=== PATIENT | male | born 1980 | race Caucasian/White ===

== ENCOUNTER 2021-04-19 12:09 | Emergency (ER) | payer OTHER, SELFPAY ==
[2021-04-19 12:21] VITALS: BP 149/91; PULSE 98; RESP 16; TEMP 36.7; O2SAT 98
--- NOTE | 2021-04-19 12:29 | ED.UPPEXIN ---
HPI - Extremity Injury (Upper) General Chief Complaint: Extremity Injury, Upper Stated Complaint: Right Arm Pain Time Seen by Provider: 04/19/21 12:29 Source: patient and RN notes reviewed Mode of arrival: ambulatory Limitations: no limitations History of Present Illness HPI narrative: 40-year-old male presents to the ED express care with right proximal forearm pain and pulling sensation for the last 2 weeks. 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 No direct trauma. Has full range of motion of the shoulder, elbow, wrist. Strong table games manager noted. Positive radial pulse. Sensation intact in all 5 fingers. Fingertip taps normal MD complaint: injury to: right (forearm) and forearm Related Data Allergies Allergy/AdvReac Type Severity Reaction Status Date / Time No Known Allergies Allergy Verified 06/03/14 15:57 Review of Systems Review of Systems: All systems reviewed & are unremarkable except as noted in HPI and below Constitutional: Constitutional: Reports no additional constitutional complaints, Denies chills and Denies fever(s) Eyes: Eyes: Reports no additional eye complaints ENT: Reports system reviewed and no additional complaints, except as documented, Denies vertigo, Denies dizziness and Denies headache(s) Cardiovascular: Cardiovascular: Reports no additional cardiovascular complaints, Denies chest pain, Denies syncope and Denies dyspnea Respiratory: Respiratory: Reports no additional respiratory complaints, Denies cough and Denies dyspnea Gastrointestinal: Gastrointestinal: Reports no additional gastrointestinal complaints, Denies abdominal pain, Denies nausea and Denies vomiting Musculoskeletal: Musculoskeletal: Reports as per HPI, Denies joint swelling, Reports muscle cramps (right forearm ) and Denies numbness Integumentary/Breasts: Skin/Breast: Reports system reviewed and no additional complaints, except as docu, Denies erythema and Denies rash Neurologic: Reports system reviewed and no additional complaints, except as documented, Denies confusion, Denies vertigo, Denies dizziness, Denies syncope, Denies headache(s), Denies focal weakness, Denies numbness and Denies weakness Psychiatric: Psychiatric: Reports no additional psychiatric complaints and Denies confusion Allergic/Immunologic: Allergic/Immunologic: Reports no additional allergic/immunologic complaints PMFSH Past Medical History Medical History (Updated 04/19/21 @ 19:43 by Tracee Morel) No significant medical problems Surgical History Surgical History (Updated 04/19/21 @ 19:43 by Tracee Morel) No pertinent past surgical history Social History Social History (Updated 04/19/21 @ 19:43 by Tracee Morel) Gender identity (if verbalized by the patient): Male Comments At the time of my signature, I reviewed and agree with the nursing past medical, surgical, social, and family history. There is no relevant family history pertinent to the patient complaint. Exam Const: General: healthy appearing and no acute distress; No confusion Nutritional Appearance: well nourished Orientation/consciousness: patient oriented x3 Limitations: no limitations HENMT: Head: normal to inspection Ears: external ears normal Eyes: Conjunctivae: conjunctivae normal Pupils: Equal, round and reactive pupils present Neck: Neck: normal visual inspection, no lymphadenopathy and no meningeal signs Chest: Chest palpation & inspection: normal inspection of the chest Resp: Effort & Inspection: normal respiratory effort and no use of accessory muscles Auscultation: clear to auscultation bilaterally, no crackles, no rales, no rhonchi and no wheezes Cardio: Rate: regular rate Rhythm: regular rhythm Back/Spine/Pelvis: Back: no CVA tenderness Cervical Spine: normal cervical lordosis Thoracic/Lumbar Spine: thoracic and lumbar spine normal to inspection Skin: General skin exam: normal color Rashes: no rashes Wounds: no wounds Neuro: Ge
== END 2021-04-19 12:35 | disposition home or self-care (01) ==
PROVIDERS: Emergency Provider Nurse Practitioner
DX: S56.911A Strain of unspecified muscles, fascia and tendons at forearm level, right arm, initial encounter (principal); X50.3XXA Overexertion from repetitive movements, initial encounter; Y99.0 Civilian activity done for income or pay
CPT/HCPCS: 99213; G0463

== ENCOUNTER 2022-10-12 20:59 | Emergency (ER) | payer OTHER, SELFPAY ==
--- NOTE | ~2022-10-12 | CT_ITS ---
CT of the Abdomen and Pelvis: Indication: Abdominal pain Technique: 2.5 mm axial scans were obtained through the abdomen and pelvis following intravenous adm inistration of 100 cc of Omnipaque 350. Dose reduction technique was used on this scan by utilizing a utomated exposure control and iterative reconstruction technique. The dose-length product (DLP) was 4 09.53 mGy-cm. Findings: Scans through the lung bases are unremarkable. The liver, spleen, pancreas, gallbladder, and adrenal glands are within normal limits. There is a 5 m m stone at the mid right ureter (axial image 133), with mild right hydroureteronephrosis to this leve l. There is an additional 4 mm stone in the mid right ureter is slightly more proximally (axial image 124), with the ureter dilated to 10 mm at this level. There are additional bilateral nonobstructing renal stones. No left ureteral stone or left hydronephrosis. Evidence of aortic aneurysm. No lymphad enopathy. No bowel obstruction or bowel wall thickening. There is no evidence to suggest acute appendicitis. Images through the pelvis were performed. Urinary bladder unremarkable. Prostate gland is vesicles ar e unremarkable. No ascites. Impression: 5 mm obstructing stone in the mid right ureter with mild right hydroureteronephrosis to this level. Additional 4 mm mid right ureteral stone, somewhat more proximally, with the ureter dilated to 10 mm at this level. Additional nonobstructing bilateral renal stones. Reviewed, dictated and finalized at [facility]. Impression: 5 mm obstructing stone in the mid right ureter with mild right hydroureteroneph rosis to this level. Additional 4 mm mid right ureteral stone, somewhat more proximally, with the ur eter dilated to 10 mm at this level. Additional nonobstructing bilateral renal stones.
[2022-10-12 21:01] VITALS: BP 122/87; PULSE 77; RESP 16; TEMP 36.4; O2SAT 100
--- NOTE | 2022-10-12 21:28 | ED.ABDPAIN ---
HPI - Abdominal Pain General Chief Complaint: Abdominal Pain Stated Complaint: RLQ pain Time Seen by Provider: 10/12/22 21:08 History of Present Illness HPI narrative: 41-year-old male reports for evaluation for right-sided flank pain and right-sided abdominal pain since he woke up this afternoon. He reports associated nausea and multiple episodes of vomiting along with chills and diaphoresis. States it feels like he is dying . Reports the pain radiates from his right flank into the right lower quadrant and into the right testicle. He denies dysuria or hematuria, diarrhea, chest pain or shortness of breath, known fever, injury. Denies penile discharge, testicular pain or swelling. Related Data Allergies Allergy/AdvReac Type Severity Reaction Status Date / Time No Known Allergies Allergy Verified 06/03/14 15:57 Review of Systems Review of Systems: CONSTITUTIONAL: Denies fever, chills EYES: Denies visual changes, redness, or discharge. ENT: Denies rhinorrhea, congestion, sore throat, or otalgia. CARDIOVASCULAR: Denies chest pain, palpitations, or edema. RESPIRATORY: Denies cough or dyspnea. GASTROINTESTINAL: See HPI GENITOURINARY: Denies dysuria or hematuria. SKIN: Denies rash or itching. MUSCULOSKELETAL: See HPI NEUROLOGIC: Denies headache, numbness, dizziness, or weakness. PSYCHIATRIC: Denies anxiety or depression. [facility] Past Medical History Medical History No significant medical problems Surgical History Surgical History No pertinent past surgical history Social History Social History Gender identity (if verbalized by the patient): Male Exam Narrative: GENERAL: Patient appears uncomfortable, writhing in the bed due to pain HEAD: Normocephalic EYES: PERRLA ENT: Nares clear. Mucous membranes moist. Oropharynx without tonsillar hypertrophy exudate or other lesions. NECK: Supple. CHEST: No respiratory distress. Clear to auscultation, no adventitious breath sounds. HEART: Regular rate and rhythm. No murmur heard. Normal peripheral pulses. ABDOMEN: Normal active bowel sounds. Abdomen soft with tenderness in the right upper and lower quadrants. No guarding, rebound or rigidity. Right CVA tenderness. No overlying skin changes. : Low-lying testicles without tenderness to spermatic cord, testes or epididymis. No crepitus. No penile discharge or lesions. EXTREMITIES: Normal range of motion. No edema. SKIN: Warm, dry, no rash. NEURO: No focal deficits. Alert and oriented x3. PSYCH: Normal mood and affect. Course Vital Signs Vital signs: Vital Signs Temperature 97.6 F 10/12/22 21:01 Pulse Rate 77 10/12/22 21:01 Respiratory Rate 16 10/12/22 21:01 Blood Pressure 122/87 10/12/22 21:01 Pulse Oximetry 100 10/12/22 21:01 Oxygen Delivery Room Air 10/12/22 21:01 Temperature 97.6 F 10/12/22 21:01 Pulse Rate 62 10/12/22 23:23 Respiratory Rate 15 10/12/22 23:23 Blood Pressure 122/76 10/12/22 23:23 Pulse Oximetry 100 10/12/22 23:23 Oxygen Delivery Room Air 10/12/22 21:01 MDM - Abdominal Pain MDM Narrative Medical decision making narrative: 41-year-old male reports for evaluation for right-sided flank pain and right-sided abdominal pain that radiates to the right testy since he woke up this afternoon. Vital stable, he is afebrile. Exam significant for right-sided abdominal tenderness and right CVA tenderness. Testicular exam unremarkable. Labs significant for no leukocytosis. Glucose elevated to 129 which is likely reactive. AST and ALT are elevated, no prior comparison. CT abdomen pelvis significant for an obstructing 5 mm stone in the right mid ureter with mild hydronephrosis of the right kidney as well as a partially obstructing 4 mm stone in the right mid ureter. UA shows hematu
[2022-10-12] MEDS: SODIUM CHLORIDE 0.9% IV 1,000 ML 999 ML IV CONT ×2 (21:40→23:53)
[2022-10-12] MEDS: ONDANSETRON INJ 4 MG/2 ML VIAL IV PUSH ×2 (21:40→23:52)
[2022-10-12] MEDS: MORPHINE SULFATE (*CRX) 4 MG/ML INJ IV PUSH (21:40)
[2022-10-12 21:49] LABS: Basophils Percent Auto 0.3 % (0.2-1.2); Eosinophils Absolute Auto 0.1 K/mm3 (0-0.3); Eosinophils Percent Auto 1.4 % (0-4.4); Hematocrit 40.4 % (42.0-52.0); Hemoglobin 13.3 g/dL (14.0-18.0); Immature Granulocyte Absolute 0.03 K/mm3 (0.00-0.031); Immature Granulocyte Percent A 0.3 % (0-0.5); Lymphocytes Absolute Auto 1.89 K/mm3 (0.9-3.2); Lymphocytes Percent Auto 19.9 % (18.3-44.2); Mean Corpuscular HGB Conc 32.9 g/dl (32-36); Mean Corpuscular Volume 88.2 fl (80-100); Mean Platelet Volume 9.5 fl (7.4-10.4); Monocytes Absolute Auto 0.6 K/mm3 (0.1-0.6); Monocytes Percent Auto 6.7 % (2.6-8.5); Neutrophils Absolute Auto 6.8 K/mm3 (1.3-6.7); Neutrophils Percent Auto 71.4 % (45.5-73.1); Platelet Count Result 254 k/mm3 (150-375); Red Blood Count 4.58 M/mm3 (4.6-6.20); Red Cell Distribution Width 13.2 % (11.5-14.5); White Blood Count 9.5 K/mm3 (4.5-10.0)
[2022-10-12 21:57] LABS: Alanine Aminotransferase 163 U/L (6-50); Albumin Level 4.1 g/dL (3.5-5.1); Alkaline Phosphatase 64 U/L (38-126); Anion Gap 6 mmol/L (8-16); Aspartate Amino Transferase 72 U/L (17-59); Bilirubin,Total 0.4 mg/dL (0.2-1.3); Blood Urea Nitrogen 14 mg/dL (9-20); Calcium 9.1 mg/dL (8.4-10.2); Carbon Dioxide 26 mmol/L (22-30); Chloride 105 mmol/L (98-107); Estimated CRCL calculation 88 ml/min; Estimated Glomerular Filt Rate > 60; Glucose 129 mg/dL (65-110); Lipase 268 U/L (23-300); Potassium 4.4 mmol/L (3.4-5.0); Sodium 137 mmol/L (137-145)
[2022-10-12] MEDS: HYDROmorphone HCL INJ (*CRX) 1 MG/ML SYR IV PUSH (22:51)
[2022-10-12 23:23] VITALS: BP 122/76; PULSE 62; RESP 15; O2SAT 100
[2022-10-12] MEDS: HYDROmorphone HCL INJ (*CRX) 1 MG/ML SYR 0.5 MG IV PUSH (23:52)
[2022-10-13 01:09] LABS: Appearance Urine Clear (Clear); Bacteria Urine None Seen /hpf; Bilirubin Urine Negative (Negative); Blood Urine 2+ (Negative); Color Urine Yellow (Yellow); Glucose Urine UA Negative (Negative); Ketones Urine Negative (Negative); Leukocyte Esterase Ur Trace LEU/UL (Negative); Need Manual Microscopic Reviewed; Nitrate Urine Negative (Negative); Non Pathogenic Casts 0-2; Protein Urine Negative (Negative); Squamous Epithelial Cell Urine None seen /hpf (Few); pH Urine 6.5 (5.0-9.0)
[2022-10-13 01:10] LABS: Add Urine Microscopic? YES; Specific Grav Ur 1.043 (1.001-1.035)
[2022-10-13 01:47] VITALS: BP 134/68; PULSE 66; RESP 14; O2SAT 99
== END 2022-10-13 01:48 | disposition home or self-care (01) ==
PROVIDERS: Emergency Medicine; Emergency Provider Physician Assistant
DX: N13.2 Hydronephrosis with renal and ureteral calculous obstruction (principal)
CPT/HCPCS: 36415; 74177; 80053; 81001; 83690; 85025; 87086; 96361; 96374; 96375; 96376; 99284; J1170; J2270; J2405; J7030; Q9967

== ENCOUNTER 2022-10-15 04:33 | Inpatient (IN) | payer OTHER, SELFPAY ==
[2022-10-15] VITALS (14 sets, daily range): BP systolic 104–144; BP diastolic 58–90; PULSE 82–99; RESP 16–21; TEMP 37–38; O2SAT 95–100; BMI 25.1
--- NOTE | ~2022-10-15 | XR_ITS ---
EXAMINATION: XR abdomen/kub 1V DATE: 10/15/2022 07:36 INDICATION: Abdominal pain. Kidney stones. TECHNIQUE: A supine view of the abdomen on 2 radiographs was obtained. COMPARISON: CT abdomen and pelvis 10/12/2022 FINDINGS: The distal colon is mildly distended. There is a moderate volume of stool in the colon. The re is no visible urolithiasis. IMPRESSION: 1. No visible urolithiasis. 2. Mildly distended distal colon, likely adynamic ileus. Reviewed, dictated and finalized at location A.
--- NOTE | ~2022-10-15 | XR_ITS ---
EXAMINATION: XR retrograde pyelogram RT DATE: 10/15/2022 13:00 CDT INDICATION: RT SIDE RETRO/STENT . TECHNIQUE: 3 fluoroscopic images of the right abdomen were obtained during right retrograde pyelograp hy with stent placement performed by the surgeon. I was not present in the operating room. Fluoroscop y exposure time was 13.7 seconds. Air Kerma 3.67 mGy. DAP [id number] mGym2. COMPARISON: CT abdomen pelvis 10/12/2022 FINDINGS: Following catheter access to the right collecting system, injected contrast reveals mild right hydron ephrosis. Post stent deployment the proximal coil terminates over the renal pelvis. Images of the dis octavio coil not provided. IMPRESSION: Fluoroscopic documentation of right retrograde pyelography with stent placement. Please refer to the operative note for complete procedural details . Reviewed, dictated and finalized at location K. IMPRESSION: Fluoroscopic documentation of right retrograde pyelography with stent placement . Please refer to the operative note for complete procedural details .
--- NOTE | 2022-10-15 04:14 | ADMGEN ---
This patient, Sergey Galvan, was admitted to 2 Medical Room 259-. Patient/family oriented to hospital policies and general routines including ID bracelet, bed and alarms, visiting hours, pain management, procedures, bathroom and other care routines, personal items, smoking policy, room service/diet, and visiting hours. Information on how to activate the Rapid Response Team has been discussed. Patient/Family are encouraged to report perceived risks to care and to ask questions if they do not understand what they are told or what they should do.
[2022-10-15] MEDS: DEXTROSE 5%/0.45% SOD CHL 1,000 ML 100 ML IV CONT (04:55)
--- NOTE | 2022-10-15 08:23 | WPDURCON ---
Assessment and Plan Assessment and plan (1) Right ureteral calculus: Code(s): N20.1 - Calculus of ureter Status: Acute Assessment and Plan: Proceed with cystoscopy, right retrograde, right ureteroscopy was stone extraction, possible laser, stent placement Urology Consult Note HPI Date Seen: 10/15/22 Time Seen: : Requesting Physician: Mavis Pichardo MD Primary Care Provider: SIDE SEAM MACHINE OPERATOR PHYSICIAN Consult Narrative Reason for consult: Right ureteral calculi Narrative: Sergey Galvan is a 41 year old male who was admitted with right flank pain and right ureteral stones. Patient actually was in the emergency room 2 days ago and found to have 2 4 mm stones in the right ureter. He did not want to be admitted. He thus presented outside facility and was transferred here for definitive care due to unrelenting pain. Outside CT described only 1 stone. Will need to review that. None the less he is having significant amount of pain will need intervention. Denies any prior history of stones. Denies fever Review of Systems Review of Systems: All systems reviewed & are unremarkable except as noted in HPI and below PMFSH Past Medical History Medical History No significant medical problems Surgical History Surgical History No pertinent past surgical history Social History Social History Smoking status: Former smoker Alcohol intake: current Drinks per week: 1 Substance use: current Substance use type: marijuana Last use: RARE USE Lack of Transportation: No Lack of Food: Sometimes True Current Housing: I Have Housing Concerned About Future Housing: No Difficulty Paying Gas/Electric Bills: No Difficulty Paying for Meds: No Currently Unemployed: No Education: High School Diploma/GED Difficulty w/ Childcare or Family Care: No Gender identity (if verbalized by the patient): Male Spiritual care concerns: No Meds Home Medications and Allergies Home Medications Medication Instructions Recorded Confirmed Type cyclobenzaprine 10 mg tablet 10 mg PO TID PRN muscle spasm #20 04/19/21 10/15/22 Rx tabs ibuprofen 800 mg tablet 800 mg PO TID PRN pain #30 tabs 04/19/21 10/15/22 Rx hydrocodone 5 mg-acetaminophen 325 1 tablet PO Q6H PRN pain #10 tabs 10/13/22 10/15/22 Rx mg tablet ondansetron 4 mg disintegrating 4 mg PO Q8H #20 tabs 10/13/22 10/15/22 Rx tablet tamsulosin 0.4 mg capsule (Flomax) 0.4 mg PO HS #14 caps 10/13/22 10/15/22 Rx Allergies Allergy/AdvReac Type Severity Reaction Status Date / Time No Known Allergies Allergy Verified 06/03/14 15:57 Vital Signs Vital Signs - 24 hr 10/15/22 04:33 10/15/22 05:00 Temperature 37.0 C Pulse Rate 85 Respiratory Rate 21 H Blood Pressure 107/69 Pulse Oximetry 100 Oxygen Delivery Room Air Exam Const: General: cooperative; No comfortable Resp: Effort & Inspection: normal respiratory effort Cardio: Rate: regular rate Rhythm: regular rhythm GI: Inspection: normal to inspection GI Palp: Yes Soft to palpation
[2022-10-15] MEDS: MORPHINE SULFATE (*CRX) 2 MG/ML INJ IV PUSH (08:58)
[2022-10-15 11:29] LABS: Basophils Percent Auto 0.2 % (0.2-1.2); Eosinophils Percent Auto 0.1 % (0-4.4); Hemoglobin 12.1 g/dL (14.0-18.0); Immature Granulocyte Absolute 0.06 K/mm3 (0.00-0.031); Immature Granulocyte Percent A 0.6 % (0-0.5); Lymphocytes Absolute Auto 0.65 K/mm3 (0.9-3.2); Lymphocytes Percent Auto 6.3 % (18.3-44.2); Mean Corpuscular HGB Conc 32.7 g/dl (32-36); Mean Corpuscular Hemoglobin 28.9 pg (26-34); Mean Corpuscular Volume 88.3 fl (80-100); Mean Platelet Volume 9.4 fl (7.4-10.4); Monocytes Percent Auto 9.3 % (2.6-8.5); Neutrophils Absolute Auto 8.6 K/mm3 (1.3-6.7); Neutrophils Percent Auto 83.5 % (45.5-73.1); Platelet Count Result 171 k/mm3 (150-375); Red Blood Count 4.19 M/mm3 (4.6-6.20); Red Cell Distribution Width 13.2 % (11.5-14.5); White Blood Count 10.3 K/mm3 (4.5-10.0)
[2022-10-15 11:40] LABS: Anion Gap 2 mmol/L (8-16); Blood Urea Nitrogen 17 mg/dL (9-20); Calcium 8.1 mg/dL (8.4-10.2); Carbon Dioxide 25 mmol/L (22-30); Chloride 100 mmol/L (98-107); Estimated CRCL calculation 55 ml/min; Estimated Glomerular Filt Rate 42; Glucose 113 mg/dL (65-110); Potassium 4.3 mmol/L (3.4-5.0); Sodium 127 mmol/L (137-145)
--- NOTE | 2022-10-15 12:25 | WPDANESEPPF ---
Anes - Initial Pre Proc Eval Procedure: Operation Date: 10/15/22 13:00 Proposed Procedures p Cystoscopy, Possible Right Ureteroscopy, Possible Right Retrograde Pyelogram, Possible Right Stone Extraction, Possible Right Stent Placement, Possible Holmium Laser Procedure - Otilio Moe MD Date/Time: 10/15/22 12:25 Surgeon: Mavis Pichardo MD Pre Op Diagnosis: Obstructing Kidney Stone Patient Data Age: 41 Gender: M Height: 1.83 m Weight: 84 kg Last Vital Signs Temp 37.0 C 10/15/22 05:00 Pulse 92 10/15/22 08:50 Resp 21 H 10/15/22 05:00 BP 124/73 10/15/22 08:50 Pulse Ox 100 10/15/22 05:00 O2 Del Method Room Air 10/15/22 08:00 Allergies Allergy/AdvReac Type Severity Reaction Status Date / Time No Known Allergies Allergy Verified 06/03/14 15:57 Home Medications Medication Instructions Recorded Confirmed Type cyclobenzaprine 10 mg tablet 10 mg PO TID PRN muscle spasm #20 04/19/21 10/15/22 Rx tabs ibuprofen 800 mg tablet 800 mg PO TID PRN pain #30 tabs 04/19/21 10/15/22 Rx hydrocodone 5 mg-acetaminophen 325 1 tablet PO Q6H PRN pain #10 tabs 10/13/22 10/15/22 Rx mg tablet ondansetron 4 mg disintegrating 4 mg PO Q8H #20 tabs 10/13/22 10/15/22 Rx tablet tamsulosin 0.4 mg capsule (Flomax) 0.4 mg PO HS #14 caps 10/13/22 10/15/22 Rx Laboratory Tests 10/15/22 11:22 WBC 10.3 H K/mm3 (4.5-10.0) RBC 4.19 L M/mm3 (4.6-6.20) Hgb 12.1 L g/dL (14.0-18.0) Hct 37.0 L % (42.0-52.0) MCV 88.3 fl (80-100) MCH 28.9 pg (26-34) MCHC 32.7 g/dl (32-36) RDW 13.2 % (11.5-14.5) Plt Count 171 k/mm3 (150-375) MPV 9.4 fl (7.4-10.4) Immature Gran % (Auto) 0.6 H % (0-0.5) Neut % (Auto) 83.5 H % (45.5-73.1) Lymph % (Auto) 6.3 L % (18.3-44.2) Bartholomew % (Auto) 9.3 H % (2.6-8.5) Eos % (Auto) 0.1 % (0-4.4) Baso % (Auto) 0.2 % (0.2-1.2) Lymph # (Auto) 0.65 L K/mm3 (0.9-3.2) Bartholomew # (Auto) 1.0 H K/mm3 (0.1-0.6) Eos # (Auto) 0.0 K/mm3 (0-0.3) Baso # (Auto) 0.0 K/mm3 (0.0-0.1) Abs Immat Gran (auto) 0.06 H K/mm3 (0.00-0.031) Absolute Neuts (auto) 8.6 H K/mm3 (1.3-6.7) Absolute Nucleated RBC 0.0 K/mm3 (0.0-0.012) Nucleated RBC % 0.0 % (0.0-0.2) Sodium 127 L mmol/L (137-145) Potassium 4.3 mmol/L (3.4-5.0) Chloride 100 mmol/L (98-107) Carbon Dioxide 25 mmol/L (22-30) Anion Gap 2 L mmol/L (8-16) BUN 17 mg/dL (9-20) Creatinine 1.80 H mg/dL (0.7-1.3) Estim Creat Clear Calc 55 ml/min Estimated GFR 42 L (59 - ) Glucose 113 H mg/dL (65-110) Calcium 8.1 L mg/dL (8.4-10.2) Patient hx anesthesia problems: none Family hx anesthesia problems: none Results Review: All pre-operative results and documents have been reviewed as part of the pre-operative evaluation. COUNT INCLUDES THE [facility] Past Medical History Medical History No significant medical problems Surgical History Surgical History No pertinent past surgical history Social History Social History Smoking status: Former smoker Alcohol intake: current Drinks per week: 1 Substance use: current Substance use type: marijuana Last use: RARE USE Lack of Transportation: No Lack of Food: Sometimes True Current Housing: I Have Housing Concerned About Future Housing: No Difficulty Paying Gas/Electric Bills: No Difficulty Paying for Meds: No Currently Unemployed: No Education: High School Diploma/GED Difficulty w/ Childcare or Family Care: No Gender identity (if verbalized by the patient): Male Spiritual care concerns: No Anes - Eval Final PreProcedure Day of Procedure 10/15/22 12:25 Patient weight: normal Heart: regular rate and rhythm Lungs: decr
--- NOTE | 2022-10-15 12:25 | WPDHPUPDATE1 ---
History and Physical Update Update Date/Time: 10/15/22 12:25 History and Physical has been reviewed, including an updated exam of the patient. There are NO changes in the patient's condition. Risks, benefits, and alternatives have been discussed and questions answered. Patient agrees to proceed with procedure. Proceed with cystoscopy, right retrograde, right ureteroscopy with stone extraction, possible laser, stent placement.
[2022-10-15] MEDS: LACTATED RINGERS 1,000 ML 30 ML IV CONT (12:32)
--- NOTE | 2022-10-15 12:37 | PM.IMHP ---
H&P: HPI History of Present Illness Date/Time: 10/15/22 12:37 Chief Complaint: R FLANK PAIN Narrative: 41-year-old male reports for evaluation for right-sided flank pain and right-sided abdominal pain severe pain associated with nausea and headaches. Flank pain got worst despite taking tylenol and NSAIDS. Pt came in to ED for evaluation. Pt found to have a 5 mm obstructing stone in the mid right ureter with mild right hydroureteronephrosis on CT abdomen. Pt going to have cystoscopy, right retrograde, right ureteroscopy was stone extraction today. Pt denies any past medical history UC is pending pt is treated for suspected UTI and CHELA Review of Systems Review of Systems: R Flank pain PMFSH Past Medical History Medical History No significant medical problems Surgical History Surgical History No pertinent past surgical history Social History Social History Smoking status: Former smoker Alcohol intake: current Drinks per week: 1 Substance use: current Substance use type: marijuana Last use: RARE USE Lack of Transportation: No Lack of Food: Sometimes True Current Housing: I Have Housing Concerned About Future Housing: No Difficulty Paying Gas/Electric Bills: No Difficulty Paying for Meds: No Currently Unemployed: No Education: High School Diploma/GED Difficulty w/ Childcare or Family Care: No Gender identity (if verbalized by the patient): Male Spiritual care concerns: No Meds Home Medications and Allergies Home Medications Medication Instructions Recorded Confirmed Type cyclobenzaprine 10 mg tablet 10 mg PO TID PRN muscle spasm #20 04/19/21 10/15/22 Rx tabs ibuprofen 800 mg tablet 800 mg PO TID PRN pain #30 tabs 04/19/21 10/15/22 Rx hydrocodone 5 mg-acetaminophen 325 1 tablet PO Q6H PRN pain #10 tabs 10/13/22 10/15/22 Rx mg tablet ondansetron 4 mg disintegrating 4 mg PO Q8H #20 tabs 10/13/22 10/15/22 Rx tablet tamsulosin 0.4 mg capsule (Flomax) 0.4 mg PO HS #14 caps 10/13/22 10/15/22 Rx Allergies Allergy/AdvReac Type Severity Reaction Status Date / Time No Known Allergies Allergy Verified 06/03/14 15:57 Vital Signs Vital Signs - 24 hr 10/15/22 04:33 10/15/22 05:00 10/15/22 08:50 Temperature 37.0 C Pulse Rate 85 92 Respiratory Rate 21 H Blood Pressure 107/69 124/73 Pulse Oximetry 100 Oxygen Delivery Room Air 10/15/22 08:00 10/15/22 12:26 Temperature 37.0 C Pulse Rate 87 Respiratory Rate 16 Blood Pressure 142/81 H Pulse Oximetry 100 Oxygen Delivery Room Air Room Air Exam Const: General: cooperative, healthy appearing and overweight; No in distress Nutritional Appearance: overweight Orientation/consciousness: oriented to person HENMT: Head: normal to inspection Resp: Effort & Inspection: no respiratory distress Auscultation: no rhonchi and no wheezes Cardio: Rate: regular rate Rhythm: regular rhythm GI: Inspection: normal to inspection GI Palp: Yes abdominal tenderness, Yes Guarding due to palpation present (GI), Yes Hepatomegaly present and Yes Other GI palpation findings present (Severe R flank pain lying on his left side rolled up in the bed ) Auscultation: normal bowel sounds Neuro: General: oriented to person H&P: Results Labs Labs: Short CBC 10/15/22 Range/Units 11:22 WBC 10.3 H (4.5-10.0) K/mm3 Hgb 12.1 L (14.0-18.0) g/dL Hct 37.0 L (42.0-52.0) % Plt Count 171 (150-375) k/mm3 [facility] 10/15/22 11:22 Sodium 127 L Potassium 4.3 Chloride 100 Carbon Dioxide 25 BUN 17 Creatinine 1.80 H Glucose 113 H Calcium 8.1 L Assessment and Plan Assessment and plan (1) Right ureteral calculus: Code(s): N20.1 - Calculus of ureter Status: Acute Assessment and Plan:
[2022-10-15] MEDS: LIDOCAINE HCL 2% GEL UROJET 10 ML PKG MUCOUS MEM (12:52)
--- NOTE | 2022-10-15 13:22 | W.PM.PROC2 ---
Procedure Note - Detailed Date of Procedure 10/15/22 Pre-op Diagnosis Right ureteral calculus Post-op Diagnosis Same Procedure Performed Cystoscopy, right retrograde pyelogram, right ureteroscopy with holmium laser, stone extraction, right ureteral stent placement 4.8 Slovenian contour Surgeon Otilio Moe MD Anesthesia General Description of Procedure Patient is taken to the operative suite correctly identified. Once anesthesia was obtained was placed in dorsal lithotomy position and prepped and draped usual sterile fashion. Twenty-two Slovenian scope inserted the bladder is no tumors noted. Right ureteral orifice was cannulated with a guidewire. The orifice was dilated with an 8/10 dilator. Rigid ureteral scope was then inserted. The stones visualized too large to retrieve. Using a 200 micron fiber we lasered the stone in multiple small pieces. The largest of which were sent for analysis. Reinspection revealed no residual ureteral stones. Pyelogram was then performed to confirm placement of the stent. 4.8 Slovenian contour stent was then placed with the proximal end in the renal pelvis and the distal in the bladder. Bladder was drained. 2% viscous lidocaine was inserted urethra patient is taken recovery stable condition. He will follow-up in a week's time for stent removal. This completes dictation on this patient please send a copy to my office. Estimated Blood Loss 0 Drains Yes Packing No Pathology Yes Complications No immediate complications Condition Stable Disposition PACU
[2022-10-15] MEDS: TAMSULOSIN HCL 0.4 MG CAPSULE PO (20:15)
[2022-10-16 04:36] VITALS: BP 139/80; PULSE 95; RESP 18; TEMP 37.2; O2SAT 96
[2022-10-16] MEDS: HYDROcodone/acetaminophen (*CRX) 5-325 MG TABLET 1 TAB PO (04:56)
--- NOTE | 2022-10-16 09:35 | PM.IMPN ---
Progress Note: A&P Assessment and Plan (1) Right ureteral calculus: Code(s): N20.1 - Calculus of ureter Status: Acute (2) UTI (urinary tract infection): Code(s): N39.0 - Urinary tract infection, site not specified Status: Acute (3) CHELA (acute kidney injury): Code(s): N17.9 - Acute kidney failure, unspecified Status: Acute Plan 41-year-old presented with right-sided flank pain right-sided abdominal pain CV risks with nausea and headache. Found to have 5 mm obstructing stone in the mid right ureter with mild right hydro ureteral nephrosis.. Patient underwent cystoscopy right retrograde pyelogram right ureteroscopy with holmium laser stone extraction right ureteral stent placement 4.8 Singaporean contour on 10/15/2022. He also had CHELA with creatinine of 1.8 on admission. UA with few WBC and RBC. Urine culture with no growth. Patient treated with IV fluid and ceftriaxone on admission. DVT prophylaxis with Lovenox. On tamsulosin as well. Still feeling chills and feeling febrile also has left-sided headache right behind his eye. Has been nauseated as well. Intermittent fever noted. Continue supportive treatment. Hyponatremia Subjective Date/time seen: 10/16/22 09:35 Interval history: 41-year-old presented with right-sided flank pain right-sided abdominal pain CV risks with nausea and headache. Found to have 5 mm obstructing stone in the mid right ureter with mild right hydro ureteral nephrosis.. Patient underwent cystoscopy right retrograde pyelogram right ureteroscopy with holmium laser stone extraction right ureteral stent placement 4.8 Singaporean contour on 10/15/2022. He also had CHELA with creatinine of 1.8 on admission. UA with few WBC and RBC. Urine culture with no growth. Patient treated with IV fluid and ceftriaxone on admission. DVT prophylaxis with Lovenox. On tamsulosin as well. Still feeling chills and feeling febrile also has left-sided headache right behind his eye. Has been nauseated as well. Intermittent fever noted Review of Systems Review of Systems: All systems reviewed & are unremarkable except as noted in HPI and below Exam Narrative: GENERAL: The patient is well developed, in mild distress warm to touch HEENT: Nonicteric sclerae, PERRLA, EOMI. Oropharynx clear. Moist mucous membranes. Conjunctivae appear well perfused. CHEST: Chest wall is nontender. HEART: Regular rate and rhythm without murmur, rubs, or gallops LUNGS: Clear to auscultation bilaterally. no respiratory distress ABDOMEN: Soft, positive bowel sounds, non-tender, no organomegaly. SKIN: No rash, no excessive bruising, petechiae, or purpura. NEUROLOGIC: Cranial nerves II-XII intact, alert and oriented x 3, no gross motor deficits EXTREMITIES: no edema, cyanosis or clubbing Objective Data Vital Signs Vital Signs: Vital Signs - 24 hr 10/15/22 12:26 10/15/22 13:28 10/15/22 13:44 Temperature 98.6 F 100.2 F H Pulse Rate 87 95 89 Respiratory Rate 16 18 17 Blood Pressure 142/81 H 123/90 107/68 Pulse Oximetry 100 100 100 Oxygen Delivery Room Air Simple Face Mask Simple Face Mask Oxygen Flow Rate 7 7 10/15/22 13:57 10/15/22 14:10 10/15/22 14:24 Temperature Pulse Rate 91 86 89 Respiratory Rate 18 17 16 Blood Pressure 106/65 111/58 L 109/65 Pulse Oximetry 100 100 97 Oxygen Delivery Simple Face Mask Simple Face Mask Room Air Oxygen Flow Rate 7 7 10/15/22 14:34 10/15/22 14:45 10/15/22 15:00 Temperature 99.3 F 98.7 F Pulse Rate 82 84 82 Respiratory Rate 16 16 16 Blood Pressure 104/67 129/74 127/68 Pulse Oximetry 97 97 95 Oxygen Delivery Room Air Oxygen Flow Rate 10/15/22 15:30 10/15/22 16:30 10/15/22 20:36 Temperature 98.9 F 98.9 F 100.4 F H Pulse Rate 87 86 99 Respiratory Rate 16 16 18 Blood Pressure 114/69 112/61 144/86 H Pulse Oximetry 97 98 100 Oxygen Delivery Oxygen Flow Rate 10/15/22 20:00 10/16/22 04:36 Temperature 99.0 F Pulse Rate 95 Respirat
[2022-10-16] MEDS: ONDANSETRON INJ 4 MG/2 ML VIAL IV PUSH (09:53)
[2022-10-16] MEDS: ENOXAPARIN 40 MG/0.4 ML SYRINGE SUB-Q (09:54)
[2022-10-16 10:08] LABS: Basophils Percent Auto 0.2 % (0.2-1.2); Eosinophils Percent Auto 0.1 % (0-4.4); Hematocrit 35.9 % (42.0-52.0); Immature Granulocyte Absolute 0.06 K/mm3 (0.00-0.031); Immature Granulocyte Percent A 0.7 % (0-0.5); Lymphocytes Absolute Auto 0.64 K/mm3 (0.9-3.2); Mean Corpuscular HGB Conc 33.4 g/dl (32-36); Mean Corpuscular Hemoglobin 28.8 pg (26-34); Mean Corpuscular Volume 86.1 fl (80-100); Mean Platelet Volume 9.6 fl (7.4-10.4); Monocytes Percent Auto 10.4 % (2.6-8.5); Neutrophils Absolute Auto 7.5 K/mm3 (1.3-6.7); Neutrophils Percent Auto 81.6 % (45.5-73.1); Platelet Count Result 182 k/mm3 (150-375); Red Blood Count 4.17 M/mm3 (4.6-6.20); Red Cell Distribution Width 12.8 % (11.5-14.5); White Blood Count 9.2 K/mm3 (4.5-10.0)
[2022-10-16 10:21] LABS: Alanine Aminotransferase 69 U/L (6-50); Albumin Level 3.1 g/dL (3.5-5.1); Alkaline Phosphatase 64 U/L (38-126); Anion Gap 7 mmol/L (8-16); Aspartate Amino Transferase 46 U/L (17-59); Bilirubin,Total 0.4 mg/dL (0.2-1.3); Blood Urea Nitrogen 17 mg/dL (9-20); Calcium 8.4 mg/dL (8.4-10.2); Carbon Dioxide 24 mmol/L (22-30); Chloride 95 mmol/L (98-107); Estimated CRCL calculation 81 ml/min; Estimated Glomerular Filt Rate > 60; Glucose 147 mg/dL (65-110); Magnesium 1.6 mg/dL (1.6-2.3); Potassium 4.2 mmol/L (3.4-5.0); Sodium 126 mmol/L (137-145)
[2022-10-16] MEDS: ACETAMINOPHEN 325 MG TABLET 650 MG PO ×2 (13:04→20:37)
[2022-10-16] MEDS: polyethylene glycoL 3350 17 GM POWD.PACK PO (13:04)
[2022-10-16] MEDS: SODIUM CHLORIDE 0.9% IV 1,000 ML 100 ML IV CONT (13:53)
[2022-10-16 14:06] VITALS: BP 137/75; PULSE 88; RESP 16; TEMP 36.9; O2SAT 97
--- NOTE | 2022-10-16 15:06 | WPDANESPN ---
Anes - Prog Note Post-Op Date/Time: 10/16/22 15:06 Cardiovascular status: normal Respiratory status: normal Airway patency: baseline Mental status: baseline Post-Op hydration status: normal Vital Signs: Last Vital Signs Temp 36.9 C 10/16/22 14:06 Pulse 88 10/16/22 14:06 Resp 16 10/16/22 14:06 BP 137/75 10/16/22 14:06 Pulse Ox 97 10/16/22 14:06 O2 Del Method Room Air 10/16/22 09:50 O2 Flow Rate 7 10/15/22 14:10 Pain Score (VAS): 05/16 I/O: Intake & Output 10/15/22 10/16/22 10/16/22 23:59 07:59 15:59 Intake Total 550 350 360 Output Total 1150 Balance 550 -800 360 Laboratory Tests 10/16/22 09:57 10/16/22 09:57 10/16/22 09:57 WBC 9.2 RBC 4.17 L Hgb 12.0 L Hct 35.9 L MCV 86.1 MCH 28.8 MCHC 33.4 RDW 12.8 Plt Count 182 MPV 9.6 Immature Gran % (Auto) 0.7 H Neut % (Auto) 81.6 H Lymph % (Auto) 7.0 L [place] % (Auto) 10.4 H Eos % (Auto) 0.1 Baso % (Auto) 0.2 Lymph # (Auto) 0.64 L [place] # (Auto) 1.0 H Eos # (Auto) 0.0 Baso # (Auto) 0.0 Abs Immat Gran (auto) 0.06 H Absolute Neuts (auto) 7.5 H Absolute Nucleated RBC 0.0 Nucleated RBC % 0.0 Sodium 126 L Potassium 4.2 Chloride 95 L Carbon Dioxide 24 Anion Gap 7 L BUN 17 Creatinine 1.20 Estim Creat Clear Calc 81 Estimated GFR > 60 Glucose 147 H Calcium 8.4 Magnesium 1.6 Total Bilirubin 0.4 AST 46 ALT 69 H Alkaline Phosphatase 64 Total Protein 6.0 L Albumin 3.1 L Post-procedural complaints: none Patient Feedback: Patient satisfied with anesthetic care.
--- NOTE | 2022-10-16 15:46 | WPDUROPN2 ---
Progress Note: A&P Assessment and Plan (1) CHELA (acute kidney injury): Code(s): N17.9 - Acute kidney failure, unspecified Status: Acute Assessment and Plan: Resolved, creatinin is within normal limits. (2) UTI (urinary tract infection): Code(s): N39.0 - Urinary tract infection, site not specified Status: Acute Assessment and Plan: Urine culture from 10/13/22 is negative. (3) Right ureteral calculus: Code(s): N20.1 - Calculus of ureter Status: Acute Assessment and Plan: Patient is not bothered by his stent. I asked nurse to give Zofran to encourage eating, hospitalist was also evaluating at the same time and would give him additional medications to produce a BM which is probably contributing to nausea. I also encouraged him to get up and walk around his room and sit in his chair. Once he is tolerating diet and activity he may be discharged home since his pain is controlled. Stent will be removed in one week in the office. Subjective Subjective Date/Time Seen: 10/16/22 15:46 Post Op day: 1 Interval history: POD #1 Cystoscopy, right retrograde pyelogram, right ureteroscopy with laser, stone extraction,right stent placement. Patient is diaphoretic, nauseated, constipated and fatigued this morning. He is not able to eat or be active in the room at this time d/t weakness/fatigue. HE has not had a BM in over a week and c/o a headache for 5 days. He denies stent pain. WBC is 9.2, creatinine is normal. Review of Systems Constitutional: Constitutional: Reports daytime sleepiness, Reports excessive sweating, Denies fever(s), Reports lethargy, Reports malaise, Reports poor appetite and Reports weakness Cardiovascular: Cardiovascular: Reports no additional cardiovascular complaints and Reports diaphoresis Respiratory: Respiratory: Reports no additional respiratory complaints Gastrointestinal: Gastrointestinal: Denies abdominal pain, Reports nausea and Denies vomiting Genitourinary: Genitourinary: Denies hematuria, Denies genital pain, Denies dysuria, Denies flank pain, Denies urinary frequency, Denies urinary hesitancy and Denies urinary urgency Exam Const: General: cooperative, anxious and lethargic Resp: Effort & Inspection: normal respiratory effort Cardio: Rate: regular rate GI: GI Palp: Yes Soft to palpation and No Tenderness to palpation present (GI) : General: Yes no CVA tenderness Extrem: Right upper extremity: no edema Left upper extremity: no edema Objective Data Vital Signs Vital Signs: Vital Signs - 24 hr 10/15/22 16:30 10/15/22 20:36 10/15/22 20:00 Temperature 98.9 F 100.4 F H Pulse Rate 86 99 Respiratory Rate 16 18 Blood Pressure 112/61 144/86 H Pulse Oximetry 98 100 Oxygen Delivery Room Air 10/16/22 04:36 10/16/22 09:50 10/16/22 14:06 Temperature 99.0 F 98.4 F Pulse Rate 95 88 Respiratory Rate 18 16 Blood Pressure 139/80 137/75 Pulse Oximetry 96 97 Oxygen Delivery Room Air Intake/Output Intake/Output: Intake & Output 10/13/22 10/14/22 10/15/22 10/16/22 23:59 23:59 23:59 23:59 Intake Total 800 710 Output Total 1150 Balance 800 -440 Meds/Results Medications: Active Medications Generic Name Dose Route Start Last Admin Trade Name Freq PRN Reason Stop Dose Admin Acetaminophen 650 mg 10/16/22 10:08 10/16/22 13:04 Acetaminophen 325 Mg Tablet PO 650 mg Q4H PRN Administration Headache Hydrocodone Bitart/Acetaminophen 1 tab 10/15/22 04:32 10/16/22 04:56 Hydrocodone/Acetaminophen (*Crx) 5-325 Mg Tablet PO 1 tab Q6H PRN Administration Pain Rated 4-6 Al Hydrox/Mg Hydrox/Simethicone 30 ml 10/15/22 04:32 Mag Hydrox/Al Hydrox/Simeth 30 Ml Udc PO QID PRN Dyspepsia Cyclobenzaprine HCl 10 mg 10/15/22 04:32 Cyclobenzaprine Hcl 10 Mg Tablet PO TID PRN muscle spasm Enoxaparin Sodium 40 mg 10/15/22 09:00 10/16/22 09:54 Enoxaparin 40 M
[2022-10-16 20:37] VITALS: TEMP 38
[2022-10-16] MEDS: TAMSULOSIN HCL 0.4 MG CAPSULE PO (20:40)
[2022-10-16 20:47] VITALS: BP 135/73; PULSE 89; RESP 18; TEMP 38.2; O2SAT 100
[2022-10-16] MEDS: MORPHINE SULFATE (*CRX) 2 MG/ML INJ IV PUSH (21:34)
[2022-10-16] MEDS: MICAFUNGIN SODIUM 100 MG in SODIUM CHLORIDE 0.9% IV 100 ML IVPB (21:36)
[2022-10-16 21:46] LABS: Appearance Urine Clear (Clear); Bacteria Urine None Seen /hpf; Bilirubin Urine Negative (Negative); Blood Urine 3+ (Negative); Color Urine Yellow (Yellow); Glucose Urine UA Negative (Negative); Ketones Urine Negative (Negative); Leukocyte Esterase Ur 2+ LEU/UL (Negative); Nitrate Urine Negative (Negative); Non Pathogenic Casts 0-2; Protein Urine 2+ mg/dL (Negative); RBC Urine >100 /hpf (0-2); Specific Grav Ur 1.013 (1.001-1.035); Squamous Epithelial Cell Urine None seen /hpf (Few); WBC Urine 21-50 /hpf
[2022-10-16 21:49] LABS: Add Urine Microscopic? YES
[2022-10-17] MEDS: SODIUM CHLORIDE 0.9% IV 1,000 ML 100 ML IV CONT ×2 (02:03→18:39)
--- NOTE | 2022-10-17 02:45 | PC.NURSE ---
10/16/22 at 0600: reviewed all charting and documentation by frankie shine
[2022-10-17] MEDS: MORPHINE SULFATE (*CRX) 2 MG/ML INJ IV PUSH (04:50)
[2022-10-17 05:25] VITALS: BP 127/78; PULSE 75; RESP 17; TEMP 36.7; O2SAT 99
--- NOTE | 2022-10-17 08:45 | PC.NURSE ---
Spoke with Dr. Toribio and to Svetlana from urology about patient's blood culture from [facility] in [place]. Overnight . [facility] called and let manager shift know that patient has positive blood culture growing yeast. Patient was started on micafungin. Dr. Toribio would like paperwork faxed over. Rivet Sticker called [facility] to get them sent over.
--- NOTE | 2022-10-17 10:15 | PC.NURSE ---
Called Dr. Toribio to let him know that culture results from [facility] are here
[2022-10-17 10:50] LABS: Basophils Percent Auto 0.4 % (0.2-1.2); Eosinophils Percent Auto 0.5 % (0-4.4); Hematocrit 37.1 % (42.0-52.0); Hemoglobin 12.7 g/dL (14.0-18.0); Immature Granulocyte Absolute 0.05 K/mm3 (0.00-0.031); Immature Granulocyte Percent A 0.6 % (0-0.5); Lymphocytes Absolute Auto 1.03 K/mm3 (0.9-3.2); Lymphocytes Percent Auto 12.2 % (18.3-44.2); Mean Corpuscular HGB Conc 34.2 g/dl (32-36); Mean Corpuscular Hemoglobin 29.4 pg (26-34); Mean Corpuscular Volume 85.9 fl (80-100); Mean Platelet Volume 9.1 fl (7.4-10.4); Monocytes Absolute Auto 1.3 K/mm3 (0.1-0.6); Monocytes Percent Auto 15.1 % (2.6-8.5); Neutrophils Percent Auto 71.2 % (45.5-73.1); Platelet Count Result 193 k/mm3 (150-375); Red Blood Count 4.32 M/mm3 (4.6-6.20); Red Cell Distribution Width 13.1 % (11.5-14.5); White Blood Count 8.5 K/mm3 (4.5-10.0)
[2022-10-17 11:00] LABS: Alanine Aminotransferase 78 U/L (6-50); Albumin Level 3.4 g/dL (3.5-5.1); Alkaline Phosphatase 73 U/L (38-126); Anion Gap 5 mmol/L (8-16); Aspartate Amino Transferase 53 U/L (17-59); Bilirubin,Total 0.3 mg/dL (0.2-1.3); Blood Urea Nitrogen 17 mg/dL (9-20); Calcium 8.9 mg/dL (8.4-10.2); Carbon Dioxide 27 mmol/L (22-30); Chloride 96 mmol/L (98-107); Estimated CRCL calculation 88 ml/min; Estimated Glomerular Filt Rate > 60; Glucose 133 mg/dL (65-110); Sodium 128 mmol/L (137-145)
[2022-10-17] MEDS: CEFEPIME 2 GM/NS 50 ML 2 GM/50 ML BAG IVPB ×2 (11:54→18:40)
[2022-10-17] MEDS: LORazepam INJ (*CRX) 2 MG/ML VIAL 0.5 MG IV PUSH ×2 (11:55→18:40)
[2022-10-17 13:28] VITALS: BP 121/65; PULSE 92; RESP 16; TEMP 36.8; O2SAT 100
--- NOTE | 2022-10-17 15:22 | PM.IMPN ---
Progress Note: A&P Assessment and Plan (1) Right ureteral calculus: Code(s): N20.1 - Calculus of ureter Status: Acute (2) UTI (urinary tract infection): Code(s): N39.0 - Urinary tract infection, site not specified Status: Acute (3) CHELA (acute kidney injury): Code(s): N17.9 - Acute kidney failure, unspecified Status: Acute Plan 41-year-old presented with right-sided flank pain right-sided abdominal pain CV risks with nausea and headache. Found to have 5 mm obstructing stone in the mid right ureter with mild right hydro ureteral nephrosis.. Patient underwent cystoscopy right retrograde pyelogram right ureteroscopy with holmium laser stone extraction right ureteral stent placement 4.8 Tongan contour on 10/15/2022. He also had CHELA with creatinine of 1.8 on admission. UA with few WBC and RBC. Urine culture with no growth. Patient treated with IV fluid and ceftriaxone on admission. DVT prophylaxis with Lovenox. On tamsulosin as well. Still feeling chills and feeling febrile also has left-sided headache right behind his eye. Has been nauseated as well. Intermittent fever noted. Continue supportive treatment. Repeat labs with Hyponatremia switched fluid to normal saline. Sodium level improving. Blood culture from [facility] came back positive for yeast. Started on micafungin. Still intermittently febrile. Switch antibiotics to cefepime. Patient agitated and adamant wanted to eat transferred. We do not have infectious disease specialist as well. With fungemia would benefit from so. Will call transfer center at [facility] for potential transfer. Patient advised to stay and continue current treatment until this happens. If refuses treatment will be leaving against medical advice. Subjective Date/time seen: 10/17/22 15:22 Interval history: 41-year-old presented with right-sided flank pain right-sided abdominal pain CV risks with nausea and headache. Found to have 5 mm obstructing stone in the mid right ureter with mild right hydro ureteral nephrosis.. Patient underwent cystoscopy right retrograde pyelogram right ureteroscopy with holmium laser stone extraction right ureteral stent placement 4.8 Tongan contour on 10/15/2022. He also had CHELA with creatinine of 1.8 on admission. UA with few WBC and RBC. Urine culture with no growth. Patient treated with IV fluid and ceftriaxone on admission. DVT prophylaxis with Lovenox. On tamsulosin as well. Still feeling chills and feeling febrile also has left-sided headache right behind his eye. Has been nauseated as well. Intermittent fever noted 10/17/2022: very agitated this am. wanting to go home. febrile overnight. cursing constantly Review of Systems Review of Systems: All systems reviewed & are unremarkable except as noted in HPI and below Exam Narrative: GENERAL: The patient is well developed, in mild distress warm to touch HEENT: Nonicteric sclerae, PERRLA, EOMI. Oropharynx clear. Moist mucous membranes. Conjunctivae appear well perfused. CHEST: Chest wall is nontender. HEART: Regular rate and rhythm without murmur, rubs, or gallops LUNGS: Clear to auscultation bilaterally. no respiratory distress ABDOMEN: Soft, positive bowel sounds, non-tender, no organomegaly. SKIN: No rash, no excessive bruising, petechiae, or purpura. NEUROLOGIC: Cranial nerves II-XII intact, alert and oriented x 3, no gross motor deficits EXTREMITIES: no edema, cyanosis or clubbing Objective Data Vital Signs Vital Signs: Vital Signs - 24 hr 10/16/22 20:37 10/16/22 20:47 10/16/22 20:00 Temperature 100.4 F H 100.7 F H Pulse Rate 89 Respiratory Rate 18 Blood Pressure 135/73 Pulse Oximetry 100 Oxygen Delivery Room Air 10/17/22 05:25 10/17/22 13:28 10/17/22 08:45 Temperature 98.0 F 98.2 F Pulse Rate 75 92 Respiratory Rate 17 16 Blood Pressure 127/78 121/65 Pulse Oximetry 99 100 Oxygen Delivery Room Air Intake/
--- NOTE | 2022-10-17 15:46 | WPDUROPN2 ---
Progress Note: A&P Assessment and Plan (1) UTI (urinary tract infection): Code(s): N39.0 - Urinary tract infection, site not specified Status: Acute Assessment and Plan: Urine culture negative, phillip sepsis, blood cutlures here are pending. Hospitalist to treat and will attempt to transfer to [facility] per patient request for ID consult. Patient pulled IV out. We suggested he have his IV replaced and offered medication for anxiety to help him calm down. He is refusing blood work, treatment an IV and medication at this time. (2) Right ureteral calculus: Code(s): N20.1 - Calculus of ureter Status: Acute Assessment and Plan: Ultimately he will need a stent removal in a week which can be done in the office. No further evaluation needed urologically. (3) CHELA (acute kidney injury): Code(s): N17.9 - Acute kidney failure, unspecified Status: Acute Subjective Subjective Date/Time Seen: 10/17/22 15:46 Interval history: POD #2 Cystoscopy, right retrograde pyelogram, right ureteroscopy with holmium laser, stone extraction, right ureteral stent placement 4.8 Spanish contour Patient had positive blood cultures from a previous hospital that grew phillip per hospitalist. Urine culture negative, blood cultures pending. The patient is very anxious and upset and wants to be transferred to a different facility to be cared for. He is c/o diaphoresis, headaches and body aches. He remains febrile. Review of Systems Constitutional: Constitutional: Reports fatigue, Reports fever(s), Reports lethargy, Reports night sweats and Reports weakness Cardiovascular: Cardiovascular: Denies chest pain Respiratory: Respiratory: Reports no additional respiratory complaints Gastrointestinal: Gastrointestinal: Denies abdominal pain, Denies nausea and Denies vomiting Genitourinary: Genitourinary: Denies hematuria, Denies dysuria, Denies flank pain, Denies urinary frequency, Denies urinary hesitancy, Denies urinary incontinence and Denies urinary urgency Exam Const: General: cooperative and comfortable Resp: Effort & Inspection: normal respiratory effort Cardio: Rate: regular rate GI: GI Palp: Yes Soft to palpation and No Tenderness to palpation present (GI) : General: Yes no CVA tenderness Extrem: Right lower extremity: no edema Left lower extremity: no edema Psych: Speech and movement: Clear speech present Affect: Sad affect present and Anxious affect present Attitude: Belligerent attititude/behavior present, Guarded attititude/behavior present and Avoids eye contact (attititude/behavior) Insight: Poor insight present (Psych) Judgement: Poor judgement present (Psych) Objective Data Vital Signs Vital Signs: Vital Signs - 24 hr 10/16/22 20:37 10/16/22 20:47 10/16/22 20:00 Temperature 100.4 F H 100.7 F H Pulse Rate 89 Respiratory Rate 18 Blood Pressure 135/73 Pulse Oximetry 100 Oxygen Delivery Room Air 10/17/22 05:25 10/17/22 13:28 10/17/22 08:45 Temperature 98.0 F 98.2 F Pulse Rate 75 92 Respiratory Rate 17 16 Blood Pressure 127/78 121/65 Pulse Oximetry 99 100 Oxygen Delivery Room Air Intake/Output Intake/Output: Intake & Output 10/14/22 10/15/22 10/16/22 10/17/22 23:59 23:59 23:59 23:59 Intake Total 800 1984 650 Output Total 1450 Balance 800 534 650 Meds/Results Medications: Active Medications Generic Name Dose Route Start Last Admin Trade Name Freq PRN Reason Stop Dose Admin Acetaminophen 650 mg 10/16/22 10:08 10/16/22 20:37 Acetaminophen 325 Mg Tablet PO 650 mg Q4H PRN Administration Headache Hydrocodone Bitart/Acetaminophen 1 tab 10/15/22 04:32 10/16/22 04:56 Hydrocodone/Acetaminophen (*Crx) 5-325 Mg Tablet PO 1 tab Q6H PRN Administration Pain Rated 4-6 Al Hydrox/Mg Hydrox/Simethicone 30 ml 10/15/22 04:32 Mag Hydrox/Al Hydrox/Simeth 30 Ml Udc PO QID PRN Dyspepsia Cyclobenzaprin
[2022-10-17] MEDS: CYCLOBENZAPRINE HCL 10 MG TABLET PO (18:40)
[2022-10-17 19:31] VITALS: BP 127/77; PULSE 82; RESP 18; TEMP 37.7; O2SAT 96
--- NOTE | 2022-10-18 09:26 | PM.DS ---
DS: Admitting Diagnosis Discharge Date 10/17/22 Admitting Diagnosis obstructive uropathy DS: Discharge Diagnosis Discharge Diagnosis (1) Right ureteral calculus: Code(s): N20.1 - Calculus of ureter Status: Acute (2) UTI (urinary tract infection): Code(s): N39.0 - Urinary tract infection, site not specified Status: Acute (3) CHELA (acute kidney injury): Code(s): N17.9 - Acute kidney failure, unspecified Status: Acute (4) Fungemia: Code(s): B49 - Unspecified mycosis Status: Acute DS: Summary Hospital Course Hospital Course: 41-year-old presented with right-sided flank pain right-sided abdominal pain CV risks with nausea and headache.? Found to have 5 mm obstructing stone in the mid right ureter with mild right hydro ureteral nephrosis..? Patient underwent cystoscopy right retrograde pyelogram right ureteroscopy with holmium laser stone extraction right ureteral stent placement 4.8 Albanian contour on 10/15/2022.? He also had CHELA with creatinine of 1.8 on admission.? UA with few WBC and RBC.? Urine culture with no growth.? Patient treated with IV fluid and ceftriaxone on admission.? DVT prophylaxis with Lovenox.? On tamsulosin as well.? Still feeling chills and feeling febrile also has left-sided headache right behind his eye.? Has been nauseated as well.? Intermittent fever noted.? Continue supportive treatment. Repeat labs with Hyponatremia switched fluid to normal saline.? Sodium level improving.? Blood culture from [facility] came back positive for yeast.? Started on micafungin.? Still intermittently febrile.? Switch antibiotics to cefepime.? Patient agitated and adamant wanted to get transferred.? We do not have infectious disease specialist as well.? With fungemia would benefit from so.? call [facility] for transfer and was accepted. Patient transferred to [facility]. Time Spent with Patient Time attestation: Total time spent providing and/or coordinating discharge services: 45 minutes Exam Narrative: GENERAL: The patient is well developed, in mild distress warm to touch HEENT: Nonicteric sclerae, PERRLA, EOMI. Oropharynx clear. Moist mucous membranes. Conjunctivae appear well perfused. CHEST: Chest wall is nontender. HEART: Regular rate and rhythm without murmur, rubs, or gallops LUNGS: Clear to auscultation bilaterally. no respiratory distress ABDOMEN: Soft, positive bowel sounds, non-tender, no organomegaly. SKIN: No rash, no excessive bruising, petechiae, or purpura. NEUROLOGIC: Cranial nerves II-XII intact, alert and oriented x 3, no gross motor deficits EXTREMITIES: no edema, cyanosis or clubbing DS: Data Data Completed and Pending Completed studies during hospitalization: Pending at discharge 10/15/22 13:17 Surgical [PTH] Routine Labs on day of discharge: Labs from last 24 hours 10/17/22 10:45 WBC 8.5 RBC 4.32 L Hgb 12.7 L Hct 37.1 L MCV 85.9 MCH 29.4 MCHC 34.2 RDW 13.1 Plt Count 193 MPV 9.1 Immature Gran % (Auto) 0.6 H Neut % (Auto) 71.2 Lymph % (Auto) 12.2 L [place] % (Auto) 15.1 H Eos % (Auto) 0.5 Baso % (Auto) 0.4 Lymph # (Auto) 1.03 [place] # (Auto) 1.3 H Eos # (Auto) 0.0 Baso # (Auto) 0.0 Abs Immat Gran (auto) 0.05 H Absolute Neuts (auto) 6.0 Absolute Nucleated RBC 0.0 Nucleated RBC % 0.0 Sodium 128 L Potassium 4.0 Chloride 96 L Carbon Dioxide 27 Anion Gap 5 L BUN 17 Creatinine 1.10 Estim Creat Clear Calc 88 Estimated GFR > 60 Glucose 133 H Calcium 8.9 Magnesium 2.0 Total Bilirubin 0.3 AST 53 ALT 78 H Alkaline Phosphatase 73 Total Protein 7.0 Albumin 3.4 L Preliminary micro results at discharge 10/16/22 21:20 Blood Culture - Preliminary Blood 10/16/22 21:20 Blood Culture - Preliminary Blood Discharge Plan Discharge Consulting providers: Otilio Moe Discharge Medications: No Action cyclobenzaprine 10 mg
--- NOTE | 2022-10-18 09:28 | PM.TDS ---
Transfer Discharge Sum: Prov Provider Date of admission: 10/17/22 09:58 Primary care physician: [employer] TECHNICIAN PHYSICIAN Admitting clinician: Mavis Pichardo MD Consults: 10/15/22 Consult to Physician Routine Comment: Consulting Provider: Otilio Moe scallop binder/MD group to consult: Urology Reason for consultation: Kidney stone Has provider been notified: Yes DS: Admitting Diagnosis Discharge Date 10/17/22 Admitting Diagnosis obstructive uropathy DS: Discharge Diagnosis Discharge Diagnosis (1) Right ureteral calculus: Code(s): N20.1 - Calculus of ureter Status: Acute (2) UTI (urinary tract infection): Code(s): N39.0 - Urinary tract infection, site not specified Status: Acute (3) CHELA (acute kidney injury): Code(s): N17.9 - Acute kidney failure, unspecified Status: Acute (4) Fungemia: Code(s): B49 - Unspecified mycosis Status: Acute Transfer Discharge Sum: Med Medications Active and Home Medications: Home Medications cyclobenzaprine 10 mg tablet 10 mg PO TID PRN muscle spasm #20 tabs 04/19/21 [Rx Confirmed 10/15/22] ibuprofen 800 mg tablet 800 mg PO TID PRN pain #30 tabs 04/19/21 [Rx Confirmed 10/15/22] hydrocodone 5 mg-acetaminophen 325 mg tablet 1 tablet PO Q6H PRN pain #10 tabs 10/13/22 [Rx Confirmed 10/15/22] ondansetron 4 mg disintegrating tablet 4 mg PO Q8H #20 tabs 10/13/22 [Rx Confirmed 10/15/22] tamsulosin 0.4 mg capsule (Flomax) 0.4 mg PO HS #14 caps 10/13/22 [Rx Confirmed 10/15/22] Transfer Discharge Sum: Hosp Hospital Course Hospital course: 41-year-old presented with right-sided flank pain right-sided abdominal pain CV risks with nausea and headache.? Found to have 5 mm obstructing stone in the mid right ureter with mild right hydro ureteral nephrosis..? Patient underwent cystoscopy right retrograde pyelogram right ureteroscopy with holmium laser stone extraction right ureteral stent placement 4.8 [place] contour on 10/15/2022.? He also had CHELA with creatinine of 1.8 on admission.? UA with few WBC and RBC.? Urine culture with no growth.? Patient treated with IV fluid and ceftriaxone on admission.? DVT prophylaxis with Lovenox.? On tamsulosin as well.? Still feeling chills and feeling febrile also has left-sided headache right behind his eye.? Has been nauseated as well.? Intermittent fever noted.? Continue supportive treatment. Repeat labs with Hyponatremia switched fluid to normal saline.? Sodium level improving.? Blood culture from [facility] came back positive for yeast.? Started on micafungin.? Still intermittently febrile.? Switch antibiotics to cefepime.? Patient agitated and adamant wanted to get transferred.? We do not have infectious disease specialist as well.? With fungemia would benefit from so.? discussed with transfer center [facility] accepted there. He eventually got transferred Time Spent with Patient Time attestation: Total time spent providing and/or coordinating transfer services: DS: Data Data Completed and Pending Completed studies during hospitalization: Pending at discharge 10/15/22 13:17 Surgical [PTH] Routine Labs on day of discharge: Labs from last 24 hours 10/17/22 10:45 WBC 8.5 RBC 4.32 L Hgb 12.7 L Hct 37.1 L MCV 85.9 MCH 29.4 MCHC 34.2 RDW 13.1 Plt Count 193 MPV 9.1 Immature Gran % (Auto) 0.6 H Neut % (Auto) 71.2 Lymph % (Auto) 12.2 L [place] % (Auto) 15.1 H Eos % (Auto) 0.5 Baso % (Auto) 0.4 Lymph # (Auto) 1.03 [place] # (Auto) 1.3 H Eos # (Auto) 0.0 Baso # (Auto) 0.0 Abs Immat Gran (auto) 0.05 H Absolute Neuts (auto) 6.0 Absolute Nucleated RBC 0.0 Nucleated RBC % 0.0 Sodium 128 L Potassium 4.0 Chloride 96 L Carbon Dioxide 27 Anion Gap 5 L BUN 17 Creatinine 1.10 Estim Creat Clear Calc 88 Estimated GFR > 60 Glucose 133 H Calcium 8.9 Magnesium 2.0 Total Bilirubin 0.3 AST 53 ALT 78 H Alkaline Phosphata
--- NOTE | 2022-10-18 20:56 | PC.NURSE ---
Received a call from Gilbert in hematology that the pt Sergey Galvan preliminary blood culture came back positive for yeast. The patient was transferred to [facility] yesterday. Call to the [facility] transfer line ([phone]) and the patient was a direct admit to room 635. Called to unit at [facility] ([phone]) and spoke with WANDY Egan, and relayed the information, and received a fax number of [phone] to send the result to (attn: WANDY Delarosa). Gilbert from hematology contacted and given the information and states will send the preliminary copy to [facility] via fax.
== END 2022-10-17 20:00 | disposition short-term general hospital (02) | DRG 446 ==
PROVIDERS: Internal Medicine; Urology; Admitting Provider Internal Medicine; Visit Provider Internal Medicine
PROC: 0TC68ZZ Extirpation of Matter from Right Ureter, Via Natural or Artificial Opening Endoscopic (ICD-10-PCS; CPT 52352; principal; 2022-10-15 13:00)
DX: N13.6 Pyonephrosis (principal); N17.9 Acute kidney failure, unspecified; B49 Unspecified mycosis; E87.1 Hypo-osmolality and hyponatremia; Z87.891 Personal history of nicotine dependence
CPT/HCPCS: 36415; 74018; 74420; 80048; 80053; 81001; 82365; 83735; 85025; 87040; 87086; 87106; 87186; 88300; A9270; C1769; C2617; G0378; G0379; J0692; J0696; J1100; J1650; J2060; J2248; J2250; J2270; J2405; J2704; J3010; J7030; J7120; Q9966